=== PATIENT | male | born 1950 | race Caucasian/White ===

== ENCOUNTER 2017-05-25 07:51 | Emergency (ER) | payer MEDICARE ==
--- NOTE | 2017-05-25 08:08 | ED Physician Documentation ---
Neuro Symptoms - HISTORIAN Historian: patient - HPI Chief Complaint: Neurological Deficits Additional Information: started yesterday with Right finger tips numb for couple hours, then resolved. Today started with left fingertips numbness, then mouth/lips numbness, has improved but not completely normal. No other complaints, ambulated, drove here himself. No previous similar symptoms. Onset: hours Timing: sudden onset, better Last known Well Date: 05/24/17 Last Known Well Time: 08:08 Last known Well Code/Unknown Code: Known Severity: mild Context: denies: insect, tick bite, falling injury, head injury Further Comments: no - CHARACTERS OF DEFICIT New Weakness: none Altered Sensation: LUE, Rt facial, Lt facial Vision Problems: No Impaired Speech/ Swallowing: No Decreased Ability: none Cognition is Usually: alert, oriented x3 Gait is Usually: walks w/o assistance Associated Symptoms: none - ROS MENTAL STATUS: none CVS/Resp Upper Extremity Problem: none GI/ DYSPNEA: none MS/SKIN/LYMPH: none Neuro/Psych: none - PAST HX Past History: none Surgeries/Procedures: other (bilat CEA, multi ortho) Allergies/Adverse Reactions: Allergies Allergy/AdvReac Type Severity Reaction Status Date / Time No Known Allergies Allergy Verified 05/25/17 08:15 - FAMILY HX Family History: no significant history - SOCIAL HX Smoking History: non-smoker Alcohol Use: none Drug Use: none - VITAL SIGNS Vital Signs: Vital Signs Temp Pulse Resp BP Pulse Ox 98.6 F 68 19 188/93 99 05/25/17 07:52 05/25/17 07:52 05/25/17 07:52 05/25/17 07:52 05/25/17 07:52 - REVIEWED ASSESSMENTS Nursing Assessment Reviewed: Yes Vitals Reviewed: Yes Progress - Results/Orders Results/Orders: will order stroke protocol. Spoke with [facility], They will call back, They called [facility] and said have no ICU beds, can't accept Called [facility], spoke Dr Cortes, neurology, accepts transfer to Er, No TPa. 0920 ED Results Lab/Radiology - Lab Results Lab Results: Lab Results 05/25/17 05/25/17 05/25/17 08:10 08:10 08:10 WBC 8.60 K/ul K/ul (4.00-12.00) RBC 5.28 M/ul H M/ul (3.90-5.20) Hgb 16.5 g/dL g/dL (12.0-18.0) Hct 50.5 % % (37.0-53.0) MCV 95.5 fl fl (80.0-100.0) MCH 31.2 pg pg (28.0-34.0) MCHC 32.6 g/dL g/dL (30.0-36.0) RDW 12.4 % % (11.3-14.3) Plt Count 307 K/mm3 K/mm3 (130-400) Neut % (Auto) 66.2 % % (39.0-79.0) Lymph % (Auto) 23.2 % % (16.0-50.0) [place] % (Auto) 6.1 % % (0.0-11.0) Eos % (Auto) 1.6 % % (0.0-6.8) Baso % (Auto) 0.9 (0.0-1.5) Neut # (Auto) 5.7 # k/uL # k/uL (1.4-7.7) Lymph # (Auto) 2.0 # k/uL # k/uL (0.6-4.0) [place] # (Auto) 0.5 # k/uL # k/uL (0.0-0.9) Eos # (Auto) 0.1 # k/uL # k/uL (0.0-0.6) Baso # (Auto) 0.1 # k/uL # k/uL (0.0-0.5) Reactive Lymphs % 1.8 % % (0.0-5.0) Reactive Lymphs # 0.2 # k/uL # k/uL (0.0-0.8) PT 11.4 Seconds Seconds (9.4-11.6) INR 1.09 (0.9-1.2) APTT 24.1 Seconds L Seconds (24.5-32.8) Sodium 142 mmol/L mmol/L (136-145) Potassium 4.4 mmol/L mmol/L (3.5-5.1) Chloride 103 mmol/L mmol/L (98-107) Carbon Dioxide 27 mmol/L mmol/L (22-30) BUN 14 mg/dL mg/dL (9-20) Creatinine 0.80 mg/dL mg/dL (0.66-1.25) Estimated Creat Clear 122 Est GFR ( Amer) > 60 (60 - ) Est GFR (Non-Af Amer) > 60 (60 - ) Glucose 101 mg/dL mg/dL (74-106) Calcium 9.5 mg/dL mg/dL (8.4-10.2) Total Bilirubin 0.8 mg/dL mg/dL (0.2-1.3) AST 32 U/L U/L (15-46) ALT 41 U/L U/L (13-69) Alkaline Phosphatase 64 U/L U/L (38-126) Creatine Kinase 163 U/L U/L (55-170) Total Protein 7.5 g/dL g/dL (6.3-8.2) Albumin 4.4 g/dL g/dL (3.5-5.0) - Radiology Radiology Impressions: Radiologist says "low attenuation area left parietal" but no previous to compare with, would show better on MRI. - Orders Orders: ED Orders Category Date Time Status [employer] [Telemetry] NOW Care 05/25/17 08:[address] IV Lock 1T Care 05/25/17 08:05 Active CHEST P.A.&LAT 2 VIEWS [RAD] Stat Exams 05/25/[address] BRAIN W/O CONTRAST Stat Exams 05/25/17 Ordered CBC/PLATELET/DIFF Routine Lab 05/25/17 08:10 Completed CMP Routine Lab 05/25/17 08:10 Completed CREATINE KINASE Routine Lab 05/25/17 08:10 Completed PT-INR Routine Lab 05/25/17 08:10 Completed PTT Routine Lab 05/25/17 08:10 Completed EKG WITH COMPARISON Stat Ther 05/25/17 Ordered Neuro Symptoms Physical Exam - Physical Exam General Appearance: no acute distress, alert HEENT: no apparent trauma, EOM's intact, PERRL, ENT inspection nml, airway intact, oral exam nml Neuro/Psych: alert, oriented x3, no evidence of acute CVA, mood/affect nml Cranial Nerves: nml as tested Cerebellar: nml as tested Pheripheral Exam: motor nml, sensation nml Neck: normal inspection, supple. No: lymphadenopathy, carotid bruit Respiratory: no resp distress, chest non-tender, breath sounds normal. No: wheezes, rales, rhonchi CVS: reg rate & rhythm, irregularly irregular rhy, occasional extrasystoles Abdomen: non-tender, no distention Skin: color nml, no rash Extremities: non-tender, normal range of motion, no evidence of injury, no edema Discharge Clincal Impression: Neurological deficit present Referrals: Cole Schmitt MD [Primary Care Provider] - 2 Days Condition: Stable Disposition: ER [facility] Decision to Admit: NO Date of Decison to Admit: 05/25/17 Decision Time: 09:24
[2017-05-25 08:22] LABS: BASOPHILS % 0.9 (0.0-1.5); EOSINOPHILS % 1.6 % (0.0-6.8); MEAN CORPUSCULAR HEMOGLOBIN 31.2 pg (28.0-34.0); MEAN CORPUSCULAR VOLUME 95.5 fl (80.0-100.0); MONOCYTES % 6.1 % (0.0-11.0); NEUTROPHILS # 5.7 # k/uL (1.4-7.7)
[2017-05-25 08:35] LABS: eGFR (African) > 60; eGFR (Non-African) > 60
[2017-05-25 09:47] VITALS: BP 142/53
--- NOTE | 2017-05-25 10:07 | Diagnostic Imaging Report ---
CYNTHIA PHILLIP [facility] [address] [facility].[address] 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 History: LEFT HAND AND FACE NUMBNESS (Hx) / LEFT HAND NUMBNESS (DICOM Hx) / LEFT HAND NUMBNESS (Pt comments) Comparison exam: None provided. Findings: PA lateral chest demonstrate a normal cardiac and mediastinal silhouette. No focal infiltrate. No blunting of the costophrenic margins. Osseous structures are appropriate for age. Impression: No acute appearing pulmonary process. Electronically signed on May 25, 2017 8:57:43 AM TAPE RECORDING MACHINE OPERATOR by: Travon PAREKH
--- NOTE | 2017-05-25 10:08 | Diagnostic Imaging Report ---
CYNTHIA PHILLIP [facility] [address] [facility] [address] [place], [place]. [address] Report Submission Date: May 25, 2017 8:49:27 AM ABLE SEAMAN Patient Study Name: ANKUR MATOS Date: May 25, 2017 8:21:57 AM ABLE SEAMAN Modality Type: CT\SR Gender: M Description: CT BRAIN W/O CONTRAST : 54 Institution: [facility] Physician: CYNTHIA PHILLIP Examination: CT head without contrast History: LEFT HAND AND FACE NUMBNESS SINCE THIS AM (Hx) / LEFT HAND NUMBNESS ( DICOM Hx) Comparison exam: None available Technique: Noncontrast head CT protocol. Findings: Ventricles and sulci are consistent for patient age. Cerebrocerebellar parenchyma demonstrates periventricular low attenuation consistent with small vessel disease. Area of asymmetrical low attenuation involving the posterior periventricular region the parietal lobe. No evidence for parenchymal hemorrhage. No evidence for mass or mass effect. No midline shift. No extra axial fluid collections. Partial visualization of the paranasal sinuses, mastoid air cells, orbits, skull and scalp without gross irregularity. Impression: Age related changes. Asymmetric area of decreased attenuation involving the left parietal lobe adjacent to the ventricle - suspicious for acute ischemic region. No hemorrhage. Consider obtaining MRI brain to further evaluate. Discussed findings with Dr. Phillip at 0840 hours on 25 May 2017 CDT Electronically signed on May 25, 2017 8:49:27 AM ABLE SEAMAN by: Travon PAREKH
== END 2017-05-25 09:32 | disposition short-term general hospital (02) ==
LOC: ED 07:51
DX: R29.818 Other symptoms and signs involving the nervous system (principal)
CPT/HCPCS: 70450; 71020; 71046; 80053; 82550; 85025; 85610; 85730; 99284; S1016